=== PATIENT | male | born 1975 | race Caucasian/White ===

== ENCOUNTER 2025-08-06 15:45 | Emergency (ER) | payer SELFPAY ==
[2025-08-06 15:46] VITALS: BP 140/90
[2025-08-06 16:16] LABS: Hematocrit 48.5 % (39.0-52.0); Hemoglobin 16.3 g/dL (13.0-18.0); Mean Corp Hgb Conc. 33.6 g/dL (33.0-37.0); Mean Corpuscular Volume 96.4 fL (80.0-94.0); Nucleated Red Blood Cells % 0 % (-); Platelet Count 344 10^3/uL (130-400); Red Cell Dist. Width 14.1 % (11.5-14.5)
[2025-08-06 16:24] LABS: APTT 34.5 Sec (23.4-35.0)
[2025-08-06 16:40] LABS: Troponin I < 0.012 ng/ml
[2025-08-06 17:56] VITALS: BP 113/71
[2025-08-06 17:57] VITALS: BMI 25.8
[2025-08-06 17:58] VITALS: BP 113/71
[2025-08-06 18:00] VITALS: BP 116/76
[2025-08-06 19:00] VITALS: BP 121/78
--- NOTE | 2025-08-06 19:15 | ED.GENMED ---
History of Present Illness
General
Chief Complaint: Chest Pain
Source: patient
Exam Limitations: none
Time Seen by Provider: 08/06/25 19:05
Nursing documentation reviewed up to this point in time: agreed with
History of Present Illness
History of Present Illness:
50-year-old male with no reported chronic medical issues who presents to the ER for evaluation of chest pain. Patient reports onset of symptoms 3 days ago but they worsened acutely today�he reports initially he was having some vague sharp/cramping
pain in the left lower chest. He says that it was worse with certain movement and worse when he tried to lay on his left side. He says that today in the afternoon he had an abrupt worsening of his symptoms became much more sharp and intense�he
says that symptoms were extremely intense for about an hour and seem to improve after medics gave him some Toradol. Aside from left-sided chest pain he also reports shortness of breath. He says he has had a very slight cough. Nonproductive. No
fever or chills. He denies any abdominal pain, nausea, vomiting. He denies any swelling or pain in the legs. He denies similar symptoms in the past. He does note that he recently had an approximately 14-hour car ride from [place] and returned a
few days ago.
Review of Systems
Review of Systems
All Other Systems: ROS reviewed and negative except as documented in HPI and ROS
Constitutional: Denies fever or chills
EENT: Denies sore throat
Respiratory: Reports cough and trouble breathing
Cardiac: Reports chest pain; Denies palpitations
ABD/GI: Denies abdominal pain, nausea or vomiting
: Denies dysuria or flank pain
Musculoskeletal: Denies edema or neck pain
Neurological: Denies dizzy or headache
Phy Exam
Physical Exam
Physical Exam:
General: Awake, alert, oriented x3; no acute distress
Head: Normocephalic, atraumatic
Eyes: Conjunctiva normal, sclera anicteric
Throat: Airway intact, handling secretions
Neck: Trachea midline, supple without meningismus
Lungs: Clear to auscultation bilaterally, no wheezing, rales, rhonchi�patient has significant pain with deep inspiration
Heart: Regular rate and rhythm, no murmurs, gallops, or rubs; no chest wall tenderness
Abd: Soft, non distended, nontender
Neuro: Grossly intact
Skin: No rash in the area of concern
Extremities: No edema in extremities, warm and well-perfused
Scores
Heart Failure Risk
Heart Failure Risk Score: Not Applicable
Heart Score for Chest Pain Patients
STEMI patient?: No
History: Slightly or Non-Suspicious
ECG: Normal
Age: >45 - <65 years
Risk Factors: No Risk Factors
Troponin: </= Normal Limit
Heart Score for Chest Pain Patients: 1
Heart Score Risk: 2.5% MACE over next 6 weeks
Withdrawal Assessment of Alcohol
Withdrawal Assessment Completed?: Not applicable
Course
Orders/Labs/Results
Orders:
Orders
08/06/25 15:48
Electrocardiogram (*1) Urgent
Reason for Study: Chest Pain
CR Chest - 2 Views Urgent
Comment:
Reason For Exam: chest pain
08/06/25 15:49
EKG- Treatment ONCE
08/06/25 15:52
PTT Urgent
08/06/25 15:53
Complete Blood Count/With Diff Urgent
Troponin I Urgent
08/06/25 19:15
CT Chest PE Study Urgent
Comment:
Reason For Exam: left sided chest pain, SOB
0.9% Sodium Chloride 1000 ml [Nss] 1,000 ml IV BOLUS
Ketorolac [Toradol] 15 mg IV NOW STA
08/06/25 19:18
Comprehensive Metabolic Panel Urgent
Abnormal Lab Results
08/06/25 08/06/25
15:53 19:18
MCV 96.4 H fL
(80.0-94.0)
MCH 32.4 H pg
(27.0-31.0)
Absolute Neuts (auto) 6.9 H 10^3/uL
(1.4-6.5)
Absolute Monos (auto) 1.1 H 10^3/uL
(0.1-0.6)
Monocytes % 10.6 H %
(1.7-9.3)
Sodium 134 L mmol/L
(135-145)
Glucose 129 H mg/dl
(70-99)
08/06/25 15:53
08/06/25 19:18
Vital Signs
Initial and Last Documented VS:
Initial Vital Signs
Temp Pulse Resp BP Pulse Ox
36.8 C 64 20 140/90 98
08/06/25 15:46 08/06/25 15:46 08/06/25 15:46 08/06/25 15:46 08/06/25 15:46
Last Documented Vital Signs
Temp Pulse Resp BP Pulse Ox
36.4 C 77 22 121/78 97
08/06/25 17:58 08/06/25 19:15 08/06/25 18:45 08/06/25 19:00 08/06/25 19:21
MDM/Problems Addressed
Differential Diagnosis Includes:
ACS, PE, pneumothorax, pneumonia, costochondritis, GERD
MDM/Problems Addressed:
50-year-old male presents to the ER for evaluation of chest pain x 3 days acutely worse today. It did improve with some Toradol from EMS. Vital signs are within acceptable range. Physical exam as noted. EKG showed no acute ischemia. He had lab
work sent in triage including a CBC which showed no clinically significant abnormalities. Chemistry was not sent in triage�added this on. A troponin sent in triage was undetectable and with consistent symptoms for 3 days this is sufficient to rule
out acute WA. Chest x-ray showed atelectasis versus pneumonia in the left lower lung�this could potentially account for his symptoms but descriptor of symptoms is somewhat atypical for pneumonia and he has little to no cough with no fever or
leukocytosis. With intense pleuritic pain and recent 14-hour car ride I do think PE should be excluded and so we will send for a CT chest to evaluate for this diagnosis and to better visualize findings on chest x-ray. Reassess after the above.
CT chest shows no PE but does show a left-sided pleural effusion with some compressive atelectasis. Will plan to cover with antibiotics in case of pneumonia. He denies any trauma or injury to the area. He has remained stable throughout ER visit.
In my judgment stable for discharge. Unfortunately he disclosed that he is currently homeless. He will need follow-up and to have repeat imaging�I did advise him that he can follow-up in the free clinic but that he should likely have repeat x-ray
in about 2 weeks and if needed could come back here to be reassessed while pending free clinic follow-up. We spoke in detail about return precautions. All questions answered.
*Radiology
Radiology exam reviewed: preliminary read by ED provider and radiology read reviewed
*Pulse Oximetry
SaO2: 97
Oxygen Mode of Delivery: Room air
Patient hypoxic: no (97%)
*EKG
Interpreted by ED Provider?: Yes
Heart Rate: 58
Rate: bradycardiac
Rhythm: sinus
Medon: normal axis
Interval: normal interval
QRS Pattern: right bundle branch block (Incomplete)
Ischemia: no ischemia
*Critical Care Note
Total Time (30-74mins, 75-104mins- exclusive of procedures): Not Applicable
Data Reviewed
Source: patient
Patient Management
Social determinants of health affecting care: Living situation (Currently homeless which impacts his ability to follow-up)
ED Attending Note
-
Portions of this chart may have been created with voice recognition software.� Occasional wrong word or��sound alike� substitutions may have occurred due to the inherent limitations of voice recognition software.
Discharge Plan
Departure
Patient Disposition: Home (Routine Discharge)
Date of Disposition: 08/06/25
Time of Disposition: 20:57
Patient with high blood pressure during this ER visit?: Yes
Discharge Problem:
Chest pain, Pleural effusion
Instructions: Chest pain (DC)
Prescriptions:
New
doxycycline hyclate 100 mg tablet
100 mg PO BID 10 Days Qty: 20 0RF
naproxen 500 mg tablet
500 mg PO BID 5 Days Qty: 10 0RF
Referrals:
[facility] - Call in 1-3 days for appt
Activity Restrictions/Additional Instructions:
You should follow-up in the free clinic as we discussed. You should have repeat x-ray in 2 weeks as we discussed. If you feel your symptoms are worsening or if you develop any other symptoms that are concerning please return to the ER to be
reassessed immediately.
Thank you for visiting the Emergency Department at [facility].
1. Please schedule a follow up appointment as directed. Call first thing tomorrow morning to make an appointment.
2. If indicated, please take your medications as instructed and indicated on discharge paperwork.
3. If any of your symptoms do not improve, or persist, or become more severe within 6-12 hours, please return to the emergency department for further care.
4. Please return to the emergency department if you develop a headache, neck pain/stiffness, fever greater than 100.4F, chest pain, shortness of breath, persistent nausea, vomiting, slurred speech, difficulty walking, numbness/tingling, weakness,
signs of infection or any other symptoms that are worrisome to you.
Please call [phone] if you have any questions.
Interventions
Interventions:
*Risk Screen - Suicide Last Done: 08/06/25 17:58
*General Assessment Last Done: 08/06/25 15:46
*Neglect/Abuse Screening Last Done: 08/06/25 17:58
*ED- Fall Risk Assessment Last Done: 08/06/25 17:58
*ED COVID-19 Vaccine History Last Done: 08/06/25 17:58
*ED Influenza Vaccine History Last Done: 08/06/25 17:58
ED- Cardiac Assessment Last Done: 08/06/25 17:58
Discharge Date and Time
Print Language: FAROESE
[2025-08-06] MEDS: NSS 1000 IV (19:26)
[2025-08-06] MEDS: TORADOL 15 MG IV (19:26)
[2025-08-06 19:39] LABS: ALT (SGPT) 17 U/L (0-50); AST (SGOT) 22 U/L (17-59); Albumin 3.9 g/dl (3.5-5.0); Alkaline Phosphatase 45 U/L (38-126); Blood Urea Nitrogen 11 mg/dl (9-20); Calcium 8.9 mg/dl (8.4-10.2); Carbon Dioxide 26 mmol/L (22-30); Chloride 104 mmol/L (98-107); Estimated Creatinine Clearance > 125 ml/min; Glucose 129 mg/dl (70-99); Potassium 4.3 mmol/L (3.5-5.1); Sodium 134 mmol/L (135-145); Total Protein 6.8 g/dl (6.3-8.2); eGFR > 60.00
--- NOTE | 2025-08-06 21:14 | EDRN ---
patient informed of discharge plan. patient expressing concerns of discharge due to uncontrollable pain. MD Solorzano notified. Jeanine states he will speak with patient.
[2025-08-06] MEDS: VIBRAMYCIN 100 MG PO (21:51)
[2025-08-06] MEDS: PERCOCET 5/325 1 TABLET PO (21:51)
[2025-08-06 21:57] VITALS: BP 129/80
== END 2025-08-06 21:58 | disposition home or self-care (01) ==
LOC: EMR 15:45
PROVIDERS: Student in an Organized Health Care Education/Training Program; EMERGENCY PHYSICIAN Emergency Medicine
DX: R07.89 Other chest pain (principal); J90 Pleural effusion, not elsewhere classified; J98.11 Atelectasis; I45.10 Unspecified right bundle-branch block; Z59.00 Homelessness unspecified
CPT/HCPCS: 96374; 96361; 99285; 71046; 71275; 80053; 84484; 85025; 85730; 93005; Q9967